=== PATIENT | female | born 1995 | race Hispanic/Latino ===

== ENCOUNTER 2017-07-05 10:36 | Emergency (ER) | payer MEDICAID ==
[2017-07-05 10:40] VITALS: BMI 46.7
--- NOTE | 2017-07-05 11:05 | C.PDOC ---
History Of Present Illness Pt is a 22 yr old female presents to the ER with new onset of "hives" since yesterday. Patient states she is unsure of the cause. Reports has had hives in the past but not like this. Patient states the hives started on the face and spread to her chest, both arms and back of her both thighs, states its itchy. Patient ate chocolate recently and wonders if it could have been from the chocolate; patient also has some new creams she recently started using. Patient denies fever, vision changes, chest pain, SOB, mouth swelling, throat swelling, nausea, vomiting, headache, weakness or numbness. PMD: DR. Schwarz . Time Seen by Provider: 07/05/17 10:55 Chief Complaint (Nursing): Allergic Reaction History Per: Patient History/Exam Limitations: no limitations Onset/Duration Of Symptoms: Days (1) Past Medical History Reviewed: Historical Data, Nursing Documentation, Vital Signs Vital Signs: Last Vital Signs Temp 98.2 F 07/05/17 11:18 Pulse 85 07/05/17 11:18 Resp 16 07/05/17 11:18 BP 116/75 07/05/17 11:18 Pulse Ox 100 07/05/17 11:18 - Medical History PMH: No Chronic Diseases Family History: States: No Known Family Hx - Social History Hx Tobacco Use: No Hx Alcohol Use: No Hx Substance Use: No - Immunization History Hx Tetanus Toxoid Vaccination: No Hx Influenza Vaccination: Yes Hx Pneumococcal Vaccination: No Review Of Systems Except As Marked, All Systems Reviewed And Found Negative. Constitutional: Negative for: Fever Eyes: Negative for: Vision Change ENT: Negative for: Mouth Swelling, Throat Swelling Cardiovascular: Negative for: Chest Pain Respiratory: Negative for: Shortness of Breath Gastrointestinal: Negative for: Nausea, Vomiting Skin: Positive for: Other ((+) Hives to the face, chest, both arms and back of thighs.) Neurological: Negative for: Weakness, Numbness, Headache Physical Exam - Physical Exam Appears: Non-toxic, No Acute Distress Skin: Warm, Dry, Rash (Maculopapules to extrmeities, face, neck and back. No vesicles.) Head: Atraumatic, Normacephalic Eye(s): bilateral: Normal Inspection, PERRL, EOMI Nose: Normal Oral Mucosa: Moist Lips: Normal Appearing Teeth: Normal Dentition Neck: Normal Chest: Symmetrical, No Tenderness Cardiovascular: Rhythm Regular, No Murmur Respiratory: Normal Breath Sounds, No Rales, No Rhonchi, No Stridor, No Wheezing Back: Normal Inspection Extremity: Normal ROM, No Swelling Extremity: Bilateral: Atraumatic Neurological/Psych: Oriented x3, Normal Speech, Normal Motor Gait: Steady ED Course And Treatment O2 Sat by Pulse Oximetry: 95 (RA) Pulse Ox Interpretation: Normal Medical Decision Making Medical Decision Making: Initial Impression: Allergic Reaction Initial Plan: Benadryl PO Prednisone PO Disposition Counseled Patient/Family Regarding: Diagnosis, Need For Followup, Rx Given - Disposition Referrals: Layne Schwarz MD [Medical Doctor] - Disposition: HOME/ ROUTINE Disposition Time: 11:06 Condition: STABLE Additional Instructions: Ms. Pires, thank you for letting us take care of you today. Return to the ER if your symptoms worsen, or if any problems. You may be having an allergic reaction to one of your creams, or maybe from chocolate. Follow up with your primary care physician--as you may need a referral to an gypsum roofer. Take the medication listed below as prescribed. Prescriptions: DiphenhydrAMINE [Benadryl] 1 tab PO Q6 PRN #60 cap PRN Reason: Itching / Pruritus predniSONE [predniSONE Tab] 1 tab PO TID #12 tab Ranitidine HCl [Zantac] 1 tab PO BID #30 tablet Instructions: Urticaria (ED), General Allergic Reaction (ED) Forms: [employer] ([place]) Print Language: SWEDISH - POA Present On Arrival: None - Clinical Impression Clinical Impression: Allergic reaction - Scribe Statement The provider has reviewed the documentation as recorded by the Scribe Zulma Verduzco Provider Attestation: All medical record entries made by the Campbellibe were at my direction and personally dictated by me. I have reviewed the chart and agree that the record accurately reflects my personal performance of the history, physical exam, medical decision making, and the department course for this patient. I have also personally directed, reviewed, and agree with the discharge instructions and disposition.
[2017-07-05 11:19] VITALS: BP 116/75; PULSE 85; RESP 16; TEMP 98.2
[2017-07-06 16:42] VITALS: O2SAT 95
== END 2017-07-05 11:17 | disposition home or self-care (01) ==
LOC: C.ER 10:36
DX: T78.40XA Allergy, unspecified, initial encounter (principal); X58.XXXA Exposure to other specified factors, initial encounter